=== PATIENT | female | born 1990 | race Caucasian/White ===

== ENCOUNTER 2025-07-15 09:25 | Inpatient (IN) | payer OTHER ==
[2025-07-15 09:48] VITALS: BMI 37.3
[2025-07-15] MEDS ORDERED: Ibuprofen 800 MG TAB PO PRN (11:05)
[2025-07-15] MEDS ORDERED: Tranexamic Acid 1,000 MG/10 ML VIAL IVP PRN (11:05)
[2025-07-15] MEDS ORDERED: HYDROcodone/Acetaminophen 5/325 mg Tablet PO PRN ×4 (11:05→13:39)
[2025-07-15] MEDS ORDERED: hydrALAZINE 20 MG/ML VIAL SLOW IVP PRN ×2 (11:05→13:39)
[2025-07-15] MEDS ORDERED: Ondansetron PF 4 MG/2 ML Vial IVP PRN (11:05)
[2025-07-15] MEDS ORDERED: Lidocaine 1% (PF) 30 ML VIAL SC PRN (11:05)
[2025-07-15 11:13] LABS: Hematocrit 37.9 % (34.9-44.5); Hemoglobin 12.9 g/dL (12.0-15.5); Mean Corpuscular Hemoglobin 28.5 pg (27.0-33.0); Mean Corpuscular Volume 83.7 fL (81.6-98.3); Platelet Count 285 10x3/uL (150-450); Red Blood Cell (RBC) Count 4.53 10x6/uL (3.90-5.03); White Blood Cell (WBC) Count 8.69 10x3/uL (3.5-10.5)
[2025-07-15] MEDS ORDERED: Oxytocin 30 units/NS 500 ML 500 ML IV SCH ×2 (11:15→13:39)
[2025-07-15 11:45] LABS: Syphilis Antibody Index 0.05 S/CO (<1.00 Non-Reactive)
[2025-07-15 11:47] LABS: Hep B Surf Ag - L&D Non-Reactive S/CO (NonReactive)
[2025-07-15] MEDS: Lidocaine 1% (PF) 30 ML VIAL ONE (12:09)
[2025-07-15] MEDS: Oxytocin 30 units/NS 500 ML 0 ML ONE (12:09)
[2025-07-15] MEDS ORDERED: Milk Of Magnesia 30 ML UDCUP PO PRN (13:39)
[2025-07-15] MEDS ORDERED: Bisacodyl 10 MG SUPP PR PRN (13:39)
[2025-07-15] MEDS ORDERED: Boostrix 0.5 ML (Tdap) VIAL (>/=7 yrs of age) IM ONE (13:39)
[2025-07-15] MEDS ORDERED: Benzocaine-Menthol 82.5 ML CAN TOP PRN (13:39)
[2025-07-15] MEDS: Ibuprofen 800 MG TAB PO SCH (14:15)
[2025-07-15] MEDS: Ferrous Sulfate 325 MG TAB PO SCH (17:03)
[2025-07-16 13:01] VITALS: BP 123/71; TEMP 97.8
== END 2025-07-16 18:17 | disposition home or self-care (01) | DRG 807 ==
LOC: CSHLD/OP 09:25 → CSHLD 10:02 → CSHPED 14:15
PROVIDERS: ADMIT Obstetrics & Gynecology; ATTEND Obstetrics & Gynecology
PROC: 10E0XZZ Delivery of Products of Conception, External Approach (ICD-10-PCS; principal; 2025-07-15)
DX: O80 Encounter for full-term uncomplicated delivery (principal); Z37.0 Single live birth; Z3A.38 38 weeks gestation of pregnancy
CPT/HCPCS: 85027; 86780; 86850; 86900; 86901; 87340; 99285